=== PATIENT | male | born 1945 | race Caucasian/White ===

== ENCOUNTER 2017-08-15 10:20 | Emergency (ER) | payer MEDICARE, OTHER ==
[~2017-08-15] VITALS: Ht 193 cm; Wt 159.0 kg
[~2017-08-15 10:20] MED LIST: BUPROPION150 MG PO; COZAAR100 MG PO; GABAPENTIN300 MG PO; HYDROCHLOR12.5 MG/CA PO; HYDROCO/APAP1 T10 PO; METFORMIN500 MG PO; METOPROL TAR100 MG PO; MOBIC7.5 MG PO; OMEPRAZOLE20 MG PO; PRILOSEC40 MG PO; SIMVASTATIN10 MG PO; SIMVASTATIN20 MG PO
[2017-08-15] MEDS ORDERED: CYMBALTA30 MG PO (11:00)
[2017-08-15] MEDS ORDERED: METOPROL TAR25 MG PO (11:01)
[2017-08-15] MEDS ORDERED: MELOXICAM7.5 MG PO (11:01)
[2017-08-15] MEDS ORDERED: XARELTO10 MG PO (11:02)
[2017-08-15] MEDS ORDERED: K-DUR/KLOR-CON20 MEQ PO (11:02)
[2017-08-15] MEDS ORDERED: MORPHINE SUL30 M3 PO (11:03)
[2017-08-15] MEDS ORDERED: TOPIRAMATE25 MG PO (11:03)
[2017-08-15] MEDS ORDERED: MOVANTIK25 MG PO (11:04)
[2017-08-15 11:07] LABS: HEMATOCRIT 48.5 % (39.0-50.0); HEMOGLOBIN 16.1 g/dl (14.0-18.0); IMMATURE GRANULOCYTES 0.6 % (0.0-1.0); MEAN CELL VOLUME 92.6 fL CALC (80.0-100.0); MEAN CORPUSCULAR HGB 30.7 pG CALC (26.0-32.0); MEAN CORPUSCULAR HGB CONC 33.2 g/L CALC (32.0-36.0); NEUT# 6.75 thou/uL (1.82-7.42); RED BLOOD COUNT 5.24 mill/uL (4.70-6.10); RED CELL DISTRI WIDTH 13.8 % (11.5-15.5)
[2017-08-15 11:29] LABS: ALBUMIN 4.4 g/dL (3.2-5.0); ALKALINE PHOSPHATASE 88 u/l (38-126); ANION GAP 19 (6-22 (CALC)); BILIRUBIN, TOTAL 0.9 mg/dL (0.0-1.4); BUN 14 mg/dL (8-23); BUN/CREATININE RATIO 16 (12-20 (CALC)); CARBON DIOXIDE 25 mmol/l (22-30); CHLORIDE 103 mmol/l (95-108); CREATININE 0.9 mg/dL (0.7-1.3); GFR > 60 ML/MIN (>=60 (CALC)); GFR FOR AFR.AMER. > 60 ML/MIN (>=60 (CALC)); POTASSIUM 4.5 mmol/l (3.5-5.1); SGOT/AST 27 u/l (19-48); SGPT/ALT 36 u/l (11-66); SODIUM 143 mmol/l (137-146)
[2017-08-15 11:35] LABS: TOTAL PROTEIN 8.2 g/dL (6.3-8.2)
[2017-08-15 11:39] LABS: URINE BILIRUBIN - DIPSTICK NEGATIVE (NEGATIVE); URINE BLOOD DIPSTICK NEGATIVE (NEGATIVE); URINE CLARITY CLEAR; URINE COLOR YELLOW; URINE GLUCOSE - DIPSTICK NEGATIVE (NEGATIVE); URINE KETONE NEGATIVE (NEGATIVE); URINE LEUK ESTERASE NEGATIVE (NEGATIVE); URINE NITRITE - DIPSTICK NEGATIVE (Negative); URINE PH 6.5 (4.5-8.0); URINE PROTEIN - DIPSTICK NEGATIVE (NEG-TRACE)
[2017-08-15] MEDS ORDERED: ANTIVERT PO (13:20)
[2017-08-15] MEDS ORDERED: AUGMENTIN500TAB PO (13:20)
[2017-08-15 13:23] VITALS: BP 126/83
== END 2017-08-15 13:36 | disposition home or self-care (01) ==
LOC: ED 10:20
PROVIDERS: Emergency Medicine
DX: E11.9 Type 2 diabetes mellitus without complications (principal); I10 Essential (primary) hypertension; I48.91 Unspecified atrial fibrillation; R42 Dizziness and giddiness; G89.29 Other chronic pain; M54.9 Dorsalgia, unspecified; Z90.49 Acquired absence of other specified parts of digestive tract

== ENCOUNTER → 2018-05-02 | Outpatient (REF) | payer MEDICARE, OTHER ==
[~2018-05-02] MED LIST changes: +ANTIVERT PO; +AUGMENTIN500TAB PO; +CYMBALTA30 MG PO; +K-DUR/KLOR-CON20 MEQ PO; +MELOXICAM7.5 MG PO; +METOPROL TAR25 MG PO; +MORPHINE SUL30 M3 PO; +MOVANTIK25 MG PO; +TOPIRAMATE25 MG PO; +XARELTO10 MG PO
[2018-05-02 08:49] LABS: ANION GAP 16 (6-22 (CALC)); BUN 11 mg/dL (8-23); BUN/CREATININE RATIO 14 (12-20 (CALC)); CARBON DIOXIDE 24 mmol/l (22-30); CHLORIDE 104 mmol/l (95-108); CREATININE 0.8 mg/dL (0.7-1.3); GFR > 60 ML/MIN (>=60 (CALC)); GFR FOR AFR.AMER. > 60 ML/MIN (>=60 (CALC)); SODIUM 140 mmol/l (137-146)
== END | disposition home or self-care (01) ==
LOC: LAB 07:45
PROVIDERS: ATTEND Internal Medicine
DX: E11.69 Type 2 diabetes mellitus with other specified complication (principal)

== ENCOUNTER 2018-08-03 20:57 | Emergency (ER) | payer MEDICARE, OTHER ==
[~2018-08-03] VITALS: Ht 193 cm; Wt 155.0 kg
[2018-08-03 22:30] VITALS: BP 131/62
== END 2018-08-03 22:30 | disposition home or self-care (01) ==
LOC: ED 20:57
DX: S20.212A Contusion of left front wall of thorax, initial encounter (principal); I10 Essential (primary) hypertension; E11.9 Type 2 diabetes mellitus without complications; I48.91 Unspecified atrial fibrillation; V00.831A Fall from motorized mobility scooter, initial encounter

== ENCOUNTER 2018-08-05 20:17 | Emergency (ER) | payer MEDICARE, OTHER ==
[~2018-08-05] VITALS: Ht 193 cm; Wt 220.0 kg
[2018-08-05 20:42] LABS: HEMATOCRIT 45.8 % (39.0-50.0); HEMOGLOBIN 15.3 g/dl (14.0-18.0); IMMATURE GRANULOCYTES 0.5 % (0.0-5.0); MEAN CELL VOLUME 91.8 fL CALC (80.0-100.0); MEAN CORPUSCULAR HGB 30.7 pG CALC (26.0-32.0); MEAN CORPUSCULAR HGB CONC 33.4 g/L CALC (32.0-36.0); NEUT# 9.34 thou/uL (1.82-7.42); RED BLOOD COUNT 4.99 mill/uL (4.70-6.10); RED CELL DISTRI WIDTH 14.2 % (11.5-15.5)
[2018-08-05 21:00] LABS: ACT PARTIAL THROMBO TIME 28.9 SECONDS (20.0-32.5); D-DIMER 0.77 mg/L (0.19-0.60); PROTHROMBIN TIME 10.3 SECONDS (9.0-12.5)
[2018-08-05 21:09] LABS: ALBUMIN 4.7 g/dL (3.2-5.0); ALKALINE PHOSPHATASE 83 u/l (38-126); ANION GAP 15 (6-22 (CALC)); BILIRUBIN, TOTAL 1.1 mg/dL (0.0-1.4); BUN 12 mg/dL (8-23); BUN/CREATININE RATIO 15 (12-20 (CALC)); CARBON DIOXIDE 26 mmol/l (22-30); CHLORIDE 102 mmol/l (95-108); CREATININE 0.8 mg/dL (0.7-1.3); GFR > 60 ML/MIN (>=60 (CALC)); GFR FOR AFR.AMER. > 60 ML/MIN (>=60 (CALC)); POTASSIUM 4.3 mmol/l (3.5-5.1); SGOT/AST 29 u/l (19-48); SODIUM 139 mmol/l (137-146); TOTAL PROTEIN 7.7 g/dL (6.3-8.2)
[2018-08-05 21:21] LABS: MYOGLOBIN 32 ng/mL (0 - 121)
[2018-08-06] MEDS ORDERED: MS CONTIN60 MG PO (00:02)
[2018-08-06 00:07] VITALS: BP 132/78
== END 2018-08-06 00:25 | disposition home or self-care (01) ==
LOC: ED 20:17
PROVIDERS: Family Medicine
DX: S20.212A Contusion of left front wall of thorax, initial encounter (principal); I10 Essential (primary) hypertension; I48.91 Unspecified atrial fibrillation; E11.9 Type 2 diabetes mellitus without complications; V00.831A Fall from motorized mobility scooter, initial encounter
CPT/HCPCS: Q9967

== ENCOUNTER 2019-09-20 17:50 | Emergency (ER) | payer MEDICARE, OTHER ==
[~2019-09-20] VITALS: Ht 193 cm; Wt 90.0 kg
[~2019-09-20 17:50] MED LIST changes: +MS CONTIN60 MG PO; +PERCOCET 10/31 COMBO PO
[2019-09-20 18:24] LABS: GFR > 60 ML/MIN (>=60 (CALC)); GFR FOR AFR.AMER. > 60 ML/MIN (>=60 (CALC))
[2019-09-20 18:26] LABS: HEMATOCRIT 40.4 % (39.0-50.0); IMMATURE GRANULOCYTES 0.9 % (0.0-5.0); MEAN CELL VOLUME 93.3 fL CALC (80.0-100.0); MEAN CORPUSCULAR HGB 30.3 pG CALC (26.0-32.0); MEAN CORPUSCULAR HGB CONC 32.4 g/dL CAL (32.0-36.0); NEUT# 14.67 thou/uL (1.82-7.42); RED BLOOD COUNT 4.33 mill/uL (4.70-6.10); RED CELL DISTRI WIDTH 13.7 % (11.5-15.5)
[2019-09-20 18:29] LABS: HEMOGLOBIN 13.1 g/dl (14.0-18.0)
[2019-09-20] MEDS ORDERED: WELLBUTRIN XL300 MG PO (18:41)
[2019-09-20 18:43] LABS: ALBUMIN 3.4 g/dL (3.2-5.0); BILIRUBIN, TOTAL 0.6 mg/dL (0.0-1.4); BUN 8 mg/dL (8-23); BUN/CREATININE RATIO 17 (12-20 (CALC)); CARBON DIOXIDE 24 mmol/l (22-30); CHLORIDE 99 mmol/l (95-108); CREATININE 0.5 mg/dL (0.7-1.3); GFR > 60 ML/MIN (>=60 (CALC)); GFR FOR AFR.AMER. > 60 ML/MIN (>=60 (CALC)); POTASSIUM 3.8 mmol/l (3.5-5.1); SGOT/AST 35 u/l (19-48); TOTAL PROTEIN 6.5 g/dL (6.3-8.2)
[2019-09-20 18:51] LABS: ALKALINE PHOSPHATASE 138 u/l (38-126); ANION GAP 12 (6-22 (CALC)); SODIUM 131 mmol/l (137-146)
[2019-09-20 20:40] VITALS: BP 113/75
== END 2019-09-20 20:40 | disposition short-term general hospital (02) ==
LOC: ED 17:50
PROVIDERS: Family Medicine
PROC: 5A09357 Assistance with Respiratory Ventilation, Less than 24 Consecutive Hours, Continuous Positive Airway Pressure (ICD-10-PCS; principal; 2019-09-20)
PROC: 06HY33Z Insertion of Infusion Device into Lower Vein, Percutaneous Approach (ICD-10-PCS; 2019-09-20)
DX: J18.9 Pneumonia, unspecified organism (principal); J96.00 Acute respiratory failure, unspecified whether with hypoxia or hypercapnia; I10 Essential (primary) hypertension; E11.9 Type 2 diabetes mellitus without complications; I48.91 Unspecified atrial fibrillation; Z20.828 Contact with and (suspected) exposure to other viral communicable diseases
CPT/HCPCS: J2060